=== PATIENT | female | born 1975 | race Caucasian/White ===

== ENCOUNTER 2019-10-28 01:43 | Day surgery (SDC) | payer OTHER, SELFPAY ==
[2019-10-27 13:08] VITALS: BMI 31.1
[2019-10-28 11:48] VITALS: BP 113/82; PULSE 67; RESP 16; TEMP 36.9; O2SAT 100
[2019-10-28] MEDS: LACTATED RINGERS 1,000 ML 150 ML IV CONT (12:05)
--- NOTE | 2019-10-28 12:38 | WPDANESEPPF ---
Anes - Initial Pre Proc Eval Procedure: Operation Date: 10/28/19 13:00 Proposed Procedures p Esophagogastroduodenoscopy - Armand Pierson MD Date/Time: 10/28/19 12:38 Surgeon: Armand Pierson MD Pre Op Diagnosis: Gerd Patient Data Age: 44 Gender: F Height: 5 ft 5 in Weight: 85.2 kg Last Vital Signs Temp 98.4 F 10/28/19 11:48 Pulse 67 10/28/19 11:48 Resp 16 10/28/19 11:48 BP 113/82 10/28/19 11:48 Pulse Ox 100 10/28/19 11:48 Allergies Allergy/AdvReac Type Severity Reaction Status Date / Time No Known Allergies Allergy Verified 10/28/19 11:46 Home Medications Medication Instructions Recorded Confirmed Type multivitamin 1 tablet PO DAILY 07/20/19 10/27/19 History acetaminophen [Tylenol] 325 mg PO ONCE PRN 10/27/19 10/27/19 History omeprazole 20 mg PO DAILY 10/27/19 10/27/19 History Patient hx anesthesia problems: none Family hx anesthesia problems: none [facility] Past Medical History Medical History (Updated 09/20/19 @ 13:24 by Armand Pierson MD) Bladder atony Dysphagia GERD (gastroesophageal reflux disease) NSAID long-term use Social History Social History (Updated 07/30/19 @ 12:42 by Bubba Lorenzo MD) Smoking status: Current some day smoker Alcohol intake: current Anes - Eval Final PreProcedure Day of Procedure 10/28/19 12:38 Patient weight: overweight Heart: regular rate and rhythm Lungs: clear to auscultation Airway: Mallampati scale class II Neurological: alert and oriented Last oral intake: >/= 8 hours ASA classification: II Emergent: no Anesthetic plan: proceed Anesthesia type and monitoring: general GIVS and standard monitoring Informed Consent: The patient's anesthetic plan and its attendant risks and benefits were discussed with the patient/family/POA. Questions were solicited and answers provided to the satisfaction of the patient/family/POA.
[2019-10-28] MEDS: BENZOCAINE (*SP) 60 ML SPRAY CAN (HURRICAINE) 1 SPRAY MUCOUS MEM (13:45)
[2019-10-28 13:56] VITALS: BP 113/70; PULSE 77; RESP 21; O2SAT 100
--- NOTE | 2019-10-28 14:02 | PM.HPGS ---
History of Present Illness History of Present Illness Consent: Risks, benefits, and alternatives have been discussed and questions answered. Patient agrees to proceed with procedure. Chief complaint: Gerd Narrative: Angeli Gongora is a 44 year old female symptomatic gerd despite antacids Review of Systems Constitutional: Constitutional: Denies headache(s) and Denies weakness Eyes: Eyes: Denies blurry vision ENT: Reports Normal hearing present, Denies headache(s) and Denies neck pain Cardiovascular: Cardiovascular: Denies chest pain and Denies dyspnea Respiratory: Respiratory: Denies dyspnea Gastrointestinal: Gastrointestinal: Reports no additional gastrointestinal complaints Genitourinary: Genitourinary: Denies dysuria Musculoskeletal: Musculoskeletal: Denies neck pain Integumentary/Breasts: Skin/Breast: Denies dry skin Neurologic: Reports Normal hearing present, Denies headache(s) and Denies weakness Psychiatric: Psychiatric: Denies anxiety Endocrine: Endocrine: Denies change in body appearance Hematologic/Lymphatic: Hematologic/Lymphatic: Denies easy bleeding Allergic/Immunologic: Allergic/Immunologic: Denies urticaria PMF Past Medical History Medical History (Updated 09/20/19 @ 13:24 by Armand Pierson MD) Bladder atony Dysphagia GERD (gastroesophageal reflux disease) NSAID long-term use Social History Social History (Updated 07/30/19 @ 12:42 by Bubba Lorenzo MD) Smoking status: Current some day smoker Alcohol intake: current Meds Home Medications and Allergies Home Medications Medication Instructions Recorded Confirmed Type multivitamin 1 tablet PO DAILY 07/20/19 10/27/19 History acetaminophen [Tylenol] 325 mg PO ONCE PRN 10/27/19 10/27/19 History omeprazole 20 mg PO DAILY 10/27/19 10/27/19 History omeprazole 20 mg PO BID #60 cap 10/28/19 Rx Allergies Allergy/AdvReac Type Severity Reaction Status Date / Time No Known Allergies Allergy Verified 10/28/19 11:46 Vital Signs Vital Signs - 24 hr 10/28/19 11:48 Temperature 98.4 F Pulse Rate 67 Respiratory Rate 16 Blood Pressure 113/82 Pulse Oximetry 100 Exam Const: General: comfortable and no acute distress HENMT: General nose exam: Normal nares present Eyes: General: appearance normal, both eyes and all related structures Neck: Neck: no JVD Resp: Auscultation: clear to auscultation bilaterally Cardio: Rate: regular rate Rhythm: regular rhythm GI: Inspection: non-distended GI Palp: Yes Soft to palpation Skin: General skin exam: normal color Neuro: General: gait normal Speech: normal speech Extrem: General: normal to inspection Psych: Mental Status: mental status grossly normal Assessment and Plan Assessment and plan (1) GERD (gastroesophageal reflux disease): Qualifiers: Esophagitis presence: esophagitis presence not specified Qualified Code(s): K21.9 - Gastro-esophageal reflux disease without esophagitis Code(s): K21.9 - Gastro-esophageal reflux disease without esophagitis Status: Acute Assessment and Plan: will proceed with egd (2) Dysphagia: Qualifiers: Dysphagia type: unspecified Qualified Code(s): R13.10 - Dysphagia, unspecified Code(s): R13.10 - Dysphagia, unspecified Status: Acute (3) NSAID long-term use: Code(s): Z79.1 - terminal clerk (current) use of non-steroidal anti-inflammatories (NSAID) Status: Acute
[2019-10-28 14:06] VITALS: BP 115/67; PULSE 64; RESP 22; O2SAT 99
[2019-10-28 14:16] VITALS: BP 128/74; PULSE 55; RESP 20; O2SAT 100
== END 2019-10-28 14:45 | disposition home or self-care (01) ==
PROVIDERS: Visit Provider Internal Medicine Gastroenterology
PROC: 0DJ08ZZ Inspection of Upper Intestinal Tract, Via Natural or Artificial Opening Endoscopic (ICD-10-PCS; CPT 43235; principal; 2019-10-28 13:00)
DX: K21.0 Gastro-esophageal reflux disease with esophagitis (principal); K29.50 Unspecified chronic gastritis without bleeding; R13.10 Dysphagia, unspecified; Z79.1 Long term (current) use of non-steroidal anti-inflammatories (NSAID); F17.210 Nicotine dependence, cigarettes, uncomplicated
CPT/HCPCS: 43239; 88305; J2704; J7120

== ENCOUNTER 2021-08-25 07:40 | Outpatient (CLI) | payer BC, SELFPAY ==
--- NOTE | ~2021-08-25 | US_ITS ---
EXAMINATION:US venous doppler LE RT INDICATION:Right leg swelling TECHNIQUE: Multiple grayscale, color flow and Doppler images of the right lower extremity deep venous systems were obtained and reviewed. COMPARISON:No prior studies for comparison. FINDINGS: The common femoral, superficial femoral and popliteal veins demonstrate normal respiratory variation, augmentation and compressibility. Color flow is also seen within the posterior tibial, pe roneal, greater saphenous and profunda veins. IMPRESSION: 1: No lower extremity deep venous thrombosis. Reviewed, dictated and finalized at location A. [facility]
== END 2021-08-25 07:41 | disposition home or self-care (01) ==
LOC: ANHIMG 07:51
PROVIDERS: PCP Family Medicine Sports Medicine; Visit Provider Orthopaedic Surgery
DX: R22.42 Localized swelling, mass and lump, left lower limb (principal)
CPT/HCPCS: 93971